=== PATIENT | female | born 1940 | race Caucasian/White ===

== ENCOUNTER 2018-12-02 09:58 | Emergency (ER) | payer MEDICARE, BC ==
[2018-12-02] MEDS ORDERED: methylPREDNISolone Sodium Succinate 40 MG/1 ML SDV IVPUSH ONE (10:57)
--- NOTE | 2018-12-02 10:59 | EDM.PDOC ---
ED HPI GENERAL MEDICAL PROBLEM - General Chief Complaint: Respiratory Problem Stated Complaint: [facility] Time Seen by Provider: 12/02/18 10:50 Source of Information: Reports: Patient, Family, RN Notes Reviewed History Limitations: Reports: No Limitations - History of Present Illness INITIAL COMMENTS - FREE TEXT/NARRATIVE: 78-year-old female presents emergency department today complaint of shortness of breath, she has a known history of COPD was recently evaluated in the emergency Department a couple weeks ago started on doxycycline and prednisone she is almost completed a course of doxycycline but she quit prednisone prior to completion of the course prescribed. She felt this was contributing to her thrush which now has resolved, no fevers was brought in by EMS did receive nebulizer treatment in route provided some relief, also fell a couple of days ago and has some bruising in the center of her back Back Pain Score (Numeric/FACES): 7 - Related Data Allergies Allergy/AdvReac Type Severity Reaction Status Date / Time bee venom protein (honey bee) Allergy Anaphylactic Verified 12/02/18 10:13 Shock indomethacin [From Indocin] Allergy Cannot Verified 12/02/18 10:13 Remember Sulfa (Sulfonamide Allergy Hives Verified 12/02/18 10:13 Antibiotics) Home Meds: Home Meds ALPRAZolam [Alprazolam] 0.5 mg PO BID PRN 12/02/18 [History] Albuterol [Ventolin HFA] 2 puff INH Q4H PRN 12/02/18 [History] Albuterol/Ipratropium [DuoNeb 3.0-0.5 MG/3 ML] 3 ml INH Q6H 12/02/18 [History] Aspirin [Halfprin] 81 mg PO DAILY 12/02/18 [History] Budesonide [Pulmicort] 1 vial INH BID 12/02/18 [History] Calcium Carbonate/Vitamin D3 [Oysco 500+D] 1 each PO DAILY 12/02/18 [History] Carisoprodol [Soma] 350 mg PO BEDTIME 12/02/18 [History] Cetirizine [ZyrTEC] 10 mg PO DAILY 12/02/18 [History] Doxycycline [Doxycycline Hyclate] 100 mg PO BID 12/02/18 [History] Escitalopram [Lexapro] 20 mg PO DAILY 12/02/18 [History] Famotidine [Pepcid] 20 mg PO DAILY 12/02/18 [History] Fluticasone Propionate [Flonase] 1 spray NS DAILY 12/02/18 [History] Fluticasone/Salmeterol [Airduo Respiclick 232-14 Mcg] 1 each IH BID 12/02/18 [ History] Fluticasone/Umeclidin/Vilanter [Trelegy Ellipta 100-62.5-25] 1 each INH DAILY [History] Ibandronate [Boniva] 150 mg PO ASDIRECTED 12/02/18 [History] Lisinopril 40 mg PO DAILY 12/02/18 [History] Metoprolol Succinate 50 mg PO DAILY 12/02/18 [History] Multivitamin [Multi-Vitamin Daily] 1 each PO DAILY 12/02/18 [History] Triamcinolone Acetonide [Triamcinolone Acetonide 0.025%] 1 applic TOP DAILY [History] Varenicline [Chantix] 1 mg PO BIDPC 12/02/18 [History] atorvaSTATin Calcium [Atorvastatin Calcium] 10 mg PO BEDTIME 12/02/18 [History] hydrOXYzine HCl [Atarax] 10 mg PO BEDTIME 12/02/18 [History] predniSONE 20 mg PO DAILY 12/02/18 [History] Past Medical History HEENT History: Reports: Cataract Cardiovascular History: Reports: High Cholesterol, Hypertension Respiratory History: Reports: COPD [employer] History: Reports: Musculoskeletal History: Reports: Fracture Neurological History: Reports: Cerebral Aneurysms, Other (See Below) Psychiatric History: Reports: Depression Hematologic History: Reports: Blood Transfusion(s) Oncologic (Cancer) History: Reports: Basal Cell Carcinoma - Past Surgical History HEENT Surgical History: Reports: Cataract Surgery Neurological Surgical History: Reports: Other (See Below) Other Neurological Surgeries/Procedures: aneurysm has coil and stent in it. Musculoskeletal Surgical History: Reports: Shoulder Replacement Social & Family History - Tobacco Use Smoking Status *Q: Former Smoker Used Tobacco, but Quit: Yes Month/Year Tobacco Last Used: september 2018 - Caffeine Use Caffeine Use: Reports: Coffee - Recreational Drug Use Recreational Drug Use: No ED ROS GENERAL - Review of Systems Review Of Systems: See Below Constitutional: Reports: No Symptoms Respiratory: Reports: Shortness of Breath. Denies: Cough, Sputum Cardiovascular: Reports: Dyspnea on Exertion GI/Abdominal: Reports: No Symptoms ED EXAM, GENERAL - Physical Exam Exam: See Below Exam Limited By: No Limitations General Appearance: Alert, WD/WN, No Apparent Distress Throat/Mouth: Normal Inspection, Normal Lips, Normal Teeth, Normal Gums, Normal Oropharynx, Normal Voice, No Airway Compromise Head: Atraumatic, Normocephalic Neck: Normal Inspection, Supple, Non-Tender, Full Range of Motion Respiratory/Chest: No Respiratory Distress, No Accessory Muscle Use, Decreased Breath Sounds Cardiovascular: Regular Rate, Rhythm, No Murmur Course - Vital Signs Last Recorded V/S: Last Vital Signs Temp 96.6 F 12/02/18 10:20 Pulse 93 12/02/18 10:20 Resp 18 12/02/18 10:56 BP 140/61 12/02/18 10:56 Pulse Ox 96 12/02/18 10:56 - Orders/Labs/Meds Orders: Active Orders 24 hr Category Date Time Status Vital Signs [RC] Q1H Care 12/02/18 10:56 Active Blood Culture x2 Reflex Set [OM.PC] Urgent Oth 12/02/18 10:56 Ordered Labs: Laboratory Tests 12/02/18 12/02/18 12/02/18 Range/Units 11:05 11:05 11:05 WBC 11.9 H (4.5-11.0) K/uL RBC 4.27 (3.30-5.50) M/uL Hgb 14.1 (12.0-15.0) g/dL Hct 42.6 (36.0-48.0) % MCV 100 H (80-98) fL MCH 33 H (27-31) pg MCHC 33 (32-36) % Plt Count 280 (150-400) K/uL Neut % (Auto) 76 H (36-66) % Lymph % (Auto) 15 L (24-44) % [place] % (Auto) 7 H (2-6) % Eos % (Auto) 1 L (2-4) % Baso % (Auto) 0 (0-1) % Sodium 139 L (140-148) mmol/L Potassium 3.6 (3.6-5.2) mmol/L Chloride 102 (100-108) mmol/L Carbon Dioxide 30 (21-32) mmol/L Anion Gap 10.6 (5.0-14.0) mmol/L BUN 11 (7-18) mg/dL Creatinine 0.8 (0.6-1.0) mg/dL Est Cr Clr Drug Dosing 54.25 mL/min Estimated GFR (MDRD) > 60 (>60) Glucose 111 H (74-106) mg/dL Lactic Acid 1.2 (0.4-2.0) mmol/L Calcium 8.9 (8.5-10.1) mg/dL Total Bilirubin 1.3 H (0.2-1.0) mg/dL AST 16 (15-37) U/L ALT 22 (12-78) U/L Alkaline Phosphatase 111 (46-116) U/L C-Reactive Protein 2.28 H (0.0-0.3) mg/dL Total Protein 6.6 (6.4-8.2) g/dL Albumin 3.3 L (3.4-5.0) g/dL Globulin 3.3 (2.3-3.5) g/dL Albumin/Globulin Ratio 1.0 L (1.2-2.2) Meds: Medications Discontinued Medications Generic Name Dose Route Start Last Admin Trade Name Freq PRN Reason Stop Dose Admin Methylprednisolone Sodium Succinate 40 mg 12/02/18 10:57 12/02/18 11:01 Solu-Medrol IVPUSH 12/02/18 10:58 40 mg ONETIME ONE Administration Departure - Departure Time of Disposition: 12:11 Disposition: Home, Self-Care 01 Condition: Fair Clinical Impression: COPD exacerbation - Discharge Information Referrals: PCP,None [Primary Care Provider] - Forms: ED Department Discharge Additional Instructions: Complete the course of antibiotics aren't started doxycycline, recommend taking the prednisone taper for the next 14 days, follow-up with your primary care in the next 3-5 days if no improvement call return to the emergency department worsening of symptoms - My Orders Last 24 Hours: My Active Orders 12/02/18 10:56 Vital Signs [RC] Q1H Blood Culture x2 Reflex Set [OM.PC] Urgent - Assessment/Plan Last 24 Hours: My Active Orders 12/02/18 10:56 Vital Signs [RC] Q1H Blood Culture x2 Reflex Set [OM.PC] Urgent Plan: Assessment Acuity = acute Site and laterality = COPD exacerbation Etiology = unknown etiology Manifestations = dyspnea Location of injury = Home Lab values = [CBC, lactic acid, CMP, CRP elevated unremarkable chest x-ray shows no acute process Plan She was provided to 40 mg Solu-Medrol IV times one in the emergency Department she'll start prednisone taper 60 mg for 3 days followed by 40 mg for 3 days then 20 mg for 3 days followed by 10 mg for 5 days she will complete the course of doxycycline already initiated follow-up primary care 3-5 days if no improvement This note was dictated using [employer] voice recognition software please call with any questions on syntax or grammar.
--- NOTE | 2018-12-02 11:54 | CRLCR ---
INDICATION: Shortness of breath COMPARISON: none TECHNIQUE: Two view chest. FINDINGS: There is pulmonary hyperinflation and attenuation of the pulmonary vasculature within the mid and upper lung zones. Findings would indicate underlying COPD/emphysema. There is a calcified granuloma within the anterior segment left upper lobe. Lungs are otherwise clear. The heart and pulmonary vessels appear normal in size with no evidence of pleural fluid. IMPRESSION: COPD/emphysema. No evidence of CHF or pneumonia. Dictated by Aleksandar Watson MD @ Dec 02 2018 11:49AM Signed by Dr. Aleksandar Watson @ Dec 02 2018 11:51AM
== END 2018-12-02 12:24 | disposition home or self-care (01) ==
LOC: JP.ED 09:58
DX: J44.1 Chronic obstructive pulmonary disease with (acute) exacerbation (principal); I10 Essential (primary) hypertension; F32.9 Major depressive disorder, single episode, unspecified; Z79.82 Long term (current) use of aspirin; Z79.899 Other long term (current) drug therapy; Z98.49 Cataract extraction status, unspecified eye; Z88.2 Allergy status to sulfonamides; Z91.030 Bee allergy status; Z88.8 Allergy status to other drugs, medicaments and biological substances; Z87.891 Personal history of nicotine dependence
CPT/HCPCS: 36415; 71046; 80053; 83605; 85025; 86140; 96374; 99285; J2920; 99284